=== PATIENT | female | born 1990 | race Caucasian/White ===

== ENCOUNTER 2017-10-22 15:30 | Emergency (ER) | END 2017-10-22 18:08 | disposition home or self-care (01) ==

== ENCOUNTER 2018-01-23 20:23 | Emergency (ER) | END 2018-01-23 22:57 | disposition home or self-care (01) ==

== ENCOUNTER 2018-10-10 15:13 | Emergency (ER) | payer OTHER ==
[~2018-10-10] VITALS: Ht 165.1 cm; Wt 90.0 kg
[~2018-10-10 15:13] MED LIST: HYDR-4011 PO; IBUP-1542 PO; IBUP800T48 PO
[2018-10-10 15:20] VITALS: BP 110/67; PULSE 93; RESP 18; Ht 165.1 cm; Wt 90.0 kg
[2018-10-10] MEDS ORDERED: HYDR-4011 PO (17:02)
--- NOTE | 2018-10-10 17:43 | ERD ---
ER Documentation Chief Complaint Chief Complaint LT SIDE TOOTH PAIN , LT EAR PAIN , SORE THROAT X 4 DAYS HPI Patient is a 28-year-old female with no significant past medical history who pr esents the ED with complaints of left-sided tooth pain status post root canal 5 days ago. Patient is reporting increased left-sided jaw pain radiating upwards towards her left ear. Patient was prescribed amoxicillin and ibuprofen by her dentist. States Ibuprofen has only been given her temporary relief so she is requesting something stronger. Patient is scheduled to see her dentist again in 3 days for follow-up. She denies any fevers, chills, difficulty breathing, drooling, stiff neck, drooling, dysphagia, trismus, wheezing or any other complaints. ROS All systems reviewed and are negative except as per history of present illness. Medications Home Meds Active Scripts Hydrocodone/Acetaminophen (Wayland 5-325 Tablet) 1 Each Tablet, 1 TAB PO Q6H PRN for PAIN, #7 TAB Prov:JOEL RICO PA-C 10/10/18 Hydrocodone/Acetaminophen (Wayland 5-325 Tablet) 1 Each Tablet, 1 TAB PO Q6H PRN for PAIN, #20 TAB Prov:LYDIA NIETO PA-C 01/23/18 Ibuprofen* (Motrin*) 800 Mg Tab, 800 MG PO Q6, #30 TAB Prov:LYDIA NIETO PA-C 01/23/18 Ibuprofen* (Motrin*) 600 Mg Tab, 600 MG PO Q8, #30 TAB Prov:DUARTE DOMINGUEZ MD 10/22/17 Allergies Allergies: Coded Allergies: No Known Allergy (Unverified , 10/10/18) PMhx/Soc Hx Miscellaneous Medical Probl: Yes (gallstones) Hx Alcohol Use: No Hx Substance Use: No Hx Tobacco Use: No FmHx Family History: No diabetes Physical Exam Vitals Vital Signs Date Temp Pulse Resp B/P (MAP) Pulse Ox O2 O2 Flow FiO2 Time Delivery Rate 10/10/18 98.6 93 18 110/67 99 15:20 (81) Physical Exam Const: No acute distress Head: Atraumatic Eyes: Normal Conjunctiva ENT: Normal External Ears and Nose. + Tenderness to percussion of tooth number 18. No signs of periapical abscess. No bucchal swelling. No crepitus. Able to open and close jaw without pain. Neck: Full range of motion. No meningismus. + Mild left mandibular LAD Resp: Clear to auscultation bilaterally Ext: No cyanosis, or edema Neur: Awake and alert Psych: Normal Mood and Affe Procedures/MDM Patient is an otherwise healthy 28 year-old female who presents to the ED with complaints of dental pain status post root canal procedure 5 days ago. Physical exam is unremarkable, no signs of apical abscess, orofacial deep space infections, meningitis or osteomyelitis. Patient's pain is likely lingering pain secondary to her recent procedure. At this patient, patient has no emergent odontogenic process and can be managed as outpatient. She was discharged with a prescription for Wayland to take for pain. She was advised to finish her entire course of antibiotics and follow up with her dentists as scheduled in 2 days. I recommended PCP follow up in 2 days as well. She was told to return to the ED for any worsening pain, fevers, chills, signs of respiratory distress, or any other symptoms. DISPOSITION PLAN: We discussed follow up with the patient's primary care doctor within 24 to 48 hours. Patient counseled regarding my diagnostic impression and care plan. Prior to discharge all questions answered. Pt agrees with treatment plan and understands strict return precautions. Precautionary instructions provided including instructions to return to the ER if not improving or for any worsening or changing symptoms or concerns. Prior to discharge, patients vital signs have been reviewed SPECIALIST FOLLOW UP RECOMMENDED: Dentist Patient has been advised to follow up with primary care in 1-2 days. Departure Diagnosis: Primary Impression: Pain, dental Condition: Stable Patient Instructions: Dental Pain Additional Instructions: Bentleyeasjazmin See your dentist as scheduled in 2 days. Have given her a short course of Wayland to take as needed for your increased pain. At this time there are no signs of an abscess or other emergent process and you are free to follow-up with her dentist as scheduled. Return to the ED for any new or worsening symptoms. JOEL RICO PA-C Oct 10, 2018 17:13
== END 2018-10-10 17:20 | disposition home or self-care (01) ==
LOC: FTE 15:13
DX: K08.89 Other specified disorders of teeth and supporting structures (principal)
CPT/HCPCS: 99283